=== PATIENT | female | born 1930 | race Caucasian/White ===

== ENCOUNTER 2018-01-31 12:13 | Day surgery (SDC) | payer MEDICARE, OTHER ==
[~2018-01-31] VITALS: Ht 162.6 cm; Wt 64.5 kg
[~2018-01-31 12:13] MED LIST: CYA500T PO; ESOM40CA30 PO; INUL1.5T3 PO; LACT1CAP60 PO; LEVO75TA PO; METO-539 PO; POLY119P2 PO; SULF473O9 PO; TRAM50TA2 PO
[2018-01-31 12:28] VITALS: BP 153/55
[2018-01-31] MEDS ORDERED: ESCI5TAB12 PO (12:35)
[2018-01-31] MEDS ORDERED: EDOX30TA PO (12:36)
[2018-01-31] MEDS ORDERED: AMLO1CAP9 PO (12:37)
[2018-01-31] MEDS ORDERED: TRAZ-143 PO (12:38)
[2018-01-31] MEDS ORDERED: fentaNYL/PF 50MCG/1 ML 2ML syringe ONE (13:00)
[2018-01-31] MEDS ORDERED: MIDAZolam 5mg/5ml vial ONE (13:01)
[2018-01-31 13:55] VITALS: BP 149/51
[2018-01-31 14:05] VITALS: BP 148/59
[2018-01-31 14:15] VITALS: BP 148/51
[2018-01-31 14:25] VITALS: BP 150/56
== END 2018-01-31 14:31 | disposition home or self-care (01) ==
LOC: GI LAB 12:13
PROVIDERS: ATTEND Internal Medicine Gastroenterology
DX: K52.9 Noninfective gastroenteritis and colitis, unspecified (principal); K57.30 Diverticulosis of large intestine without perforation or abscess without bleeding; Z86.73 Personal history of transient ischemic attack (TIA), and cerebral infarction without residual deficits; Z90.710 Acquired absence of both cervix and uterus; Z85.828 Personal history of other malignant neoplasm of skin; Z98.890 Other specified postprocedural states; Z83.3 Family history of diabetes mellitus; Z82.49 Family history of ischemic heart disease and other diseases of the circulatory system; Z80.9 Family history of malignant neoplasm, unspecified
CPT/HCPCS: 45331; J2250; J3010; J7030; A4620; G0500